=== PATIENT | female | born 1990 | race Caucasian/White ===

== ENCOUNTER 2016-07-13 00:16 | Emergency (ER) | payer SELFPAY ==
--- NOTE | 2016-07-19 14:34 | ER ---
ADMIT: 07/13/2016 RM/LOC: ER [facility] MR#: [id number] [facility] [address] [place], [place] [address] JAYCEE WILSON [address] [place] [address] Emergency Room Report SEX: F AGE: 25 : 1990 DATE: 07/13/2016 ADDENDUM: This patient comes to the ER because she has had pain in her back for the last 3 days. She feels like she pulled a muscle. She does state that she fell a month ago, but really did not have pain until three days ago. No difficulty urinating. On physical exam, this is an alert, 25-year-old white female who has difficulty getting in and out of sitting position. Pain is consistent with a muscle spasm-type lumbar strain. She was given Valium in the ER and Toradol. I wrote a prescription for Valium and meloxicam. We will have her follow up with her primary in a week if not better. Please see my T- sheet. CRAIG Woods / Rohit Townsend MD / juan c JOB #: [id number] CC: Rohit Townsend MD, Attending Physician
== END 2016-07-13 01:15 | disposition home or self-care (01) ==
LOC: ER 00:16
DX: S39.012A Strain of muscle, fascia and tendon of lower back, initial encounter (principal); Z88.0 Allergy status to penicillin; Z88.5 Allergy status to narcotic agent; X58.XXXA Exposure to other specified factors, initial encounter